=== PATIENT | female | born 1990 | race Caucasian/White ===

== ENCOUNTER → 2016-04-23 | Outpatient (REF) | payer OTHER ==
[~2016-04-23] MED LIST: ACET50TA PO; ADVI200C5 PO; ANUS2.5C2 TOP; DOCU10ELUD PO; IBUP80TA PO; LEVO25TA5 PO; MOM30SS AD; SYNT50TA PO; TYLE167L PO
== END ==
LOC: M SFHCLERA 10:32
PROVIDERS: ATTEND Family Medicine
DX: Z78.9 Other specified health status (principal)

== ENCOUNTER → 2016-07-16 | Outpatient (REF) | payer OTHER ==
[2016-07-16 17:18] LABS: THYROXINE (T4) 7.2 UG/DL (4.5-12.0)
== END ==
LOC: M SFHCLERA 12:47
PROVIDERS: ATTEND Family Medicine
DX: E03.8 Other specified hypothyroidism (principal)

== ENCOUNTER → 2016-07-30 | Outpatient (REF) | payer OTHER ==
[2016-07-30 13:22] LABS: MEAN CORPUSCULAR HEMOGLOBIN 30.5 pg (27.0-33.0); MEAN CORPUSCULAR HGB CONC 33.4 g/dl (32.0-36.5); MEAN CORPUSCULAR VOLUME 91.5 fl (80.0-96.0); RED CELL DISTRIBUTION WIDTH 12.2 % (11.5-14.5); WHITE BLOOD COUNT 4.5 K/mm3 (4.0-10.0)
[2016-07-30 13:24] LABS: FOLATE 19.6 NG/ML; VITAMIN B12 LEVEL 506 PG/ML
[2016-07-30 13:25] LABS: ALBUMIN 4.2 GM/DL (3.2-5.2); ALKALINE PHOSPHATASE 59 U/L (45-117); ALT/SGPT 23 U/L (12-78); ANION GAP 5 MEQ/L (8-16); AST/SGOT 16 U/L (15-37); BILIRUBIN,TOTAL 0.4 MG/DL (0.2-1.0); BLOOD UREA NITROGEN 12 MG/DL (7-18); CARBON DIOXIDE LEVEL 33 MEQ/L (21-32); CHLORIDE LEVEL 102 MEQ/L (98-107); CREATININE FOR GFR 0.67 MG/DL (0.55-1.02); GLOMERULAR FILTRATION RATE > 60.0 (>60); GLUCOSE, FASTING 81 MG/DL (70-105); SODIUM LEVEL 140 MEQ/L (136-145); T UPTAKE 36 % (30-39); THYROXINE (T4) 7.5 UG/DL (4.5-12.0)
== END ==
LOC: M SFHCLERA 10:51
PROVIDERS: ATTEND Family Medicine
DX: R53.83 Other fatigue (principal)

== ENCOUNTER → 2016-07-31 | Outpatient (CLI) | payer OTHER ==
--- NOTE | 2016-08-01 05:04 | REP ---
Clinical: History of Trent's disease. Technique: Real time armenta scale and color evaluation using linear high frequency and curved array transducers. Findings: The thyroid gland is diffusely heterogeneous with innumerable small nonspecific nodular changes. Color evaluation demonstrates relatively normal vascularity to the parenchyma. Right lobe measures 3.4 x 1.1 x 1.7 cm. Left lobe measures 3.4 x 1.2 x 1.3 cm. Isthmus measures 1.5 mm. Impression: Diffusely heterogeneous thyroid gland with innumerable small scattered nodular changes. Signed by Silvestre Ortiz MD 08/01/2016 04:55 A
== END ==
LOC: M LRY 09:00
PROVIDERS: ATTEND Family Medicine
DX: E03.8 Other specified hypothyroidism (principal)